=== PATIENT | male | born 1995 | race Two or more races ===

== ENCOUNTER 2018-10-21 14:14 | Emergency (ER) | payer MEDICAID, OTHER ==
[~2018-10-21] VITALS: Ht 193 cm; Wt 223.2 kg
[2018-10-21 15:31] VITALS: BP 152/91
== END 2018-10-21 16:15 | disposition home or self-care (01) ==
LOC: ER 14:20
DX: L02.412 Cutaneous abscess of left axilla (principal); M54.5 Low back pain; G89.29 Other chronic pain

== ENCOUNTER 2019-12-22 12:49 | Emergency (ER) | payer MEDICAID ==
[~2019-12-22] VITALS: Ht 185.4 cm; Wt 226.8 kg
[2019-12-22] MEDS ORDERED: KETOROLAC TROMETH 60MG/2ML VIAL IM ONE (14:00)
[2019-12-22 15:30] VITALS: BP 148/86
== END 2019-12-22 15:31 | disposition home or self-care (01) ==
LOC: ER 12:49
DX: S39.012A Strain of muscle, fascia and tendon of lower back, initial encounter (principal); S83.91XA Sprain of unspecified site of right knee, initial encounter; S60.222A Contusion of left hand, initial encounter; V43.52XA Car driver injured in collision with other type car in traffic accident, initial encounter; Y93.I9 Activity, other involving external motion; Y92.410 Unspecified street and highway as the place of occurrence of the external cause; Y99.8 Other external cause status
CPT/HCPCS: 72100; 73562; 96372; 99284; J1885

== ENCOUNTER 2023-03-21 23:59 | Emergency (ER) | payer MEDICAID ==
[~2023-03-21] VITALS: Ht 195.6 cm; Wt 213.6 kg
[2023-03-22] MEDS ORDERED: diphenhdrAMINE HCL 50 MG/1 ML VL IM ONE (01:30)
[2023-03-22 02:10] VITALS: BP 140/92; PULSE 73; RESP 16; TEMP 98; O2SAT 98
== END 2023-03-22 02:35 | disposition home or self-care (01) ==
LOC: ER 03-22 00:01
DX: L50.9 Urticaria, unspecified (principal); R22.0 Localized swelling, mass and lump, head
CPT/HCPCS: 96372; 99283; J1200